=== PATIENT | female | born 1955 | race Caucasian/White ===

== ENCOUNTER 2019-08-31 20:20 | Emergency (ER) | payer OTHER, SELFPAY ==
[2019-08-31 20:21] VITALS: BP 183/111; PULSE 82; RESP 16; TEMP 36.4; BMI 31.6
--- NOTE | 2019-08-31 20:31 | ED.DCSUM_ITS ---
History of Present Illness Chief Complaint: Complaint Detail of Chief Complaint: UTI Informant: Patient Onset: Today Current Severity: Moderate Maximum Severity: Moderate Narrative: Patient presents secondary to hematuria, frequency, dysuria. She states symptoms came on around 5 PM this evening rather abruptly. Earlier in the day she had some left lateral hip pain and she is not sure if that is related to her current symptoms. Patient states she had the same presentation 2 years ago with a UTI that quickly resolved with antibiotics. She denies fever or chills. She denies abdominal pain. - Past Medical History (1) Hypertension Status: Chronic Past Medical History - Allergies and Home Meds Allergies/Adverse Reactions: Allergies No Known Allergies Allergy (Verified 08/31/19 20:20) Primary Care Physician: Fara Ferguson MD [Primary Care Provider] - Prior records reviewed: Yes Surgical History: hysterectomy Lives: Spouse/ Significant Other Review of Systems General: Denies: Chills, Fever Eyes: Denies: Visual changes - bilaterally ENT: Denies: Bilateral ear pain Cardiovascular: Denies: Chest pain Respiratory: Denies: Dyspnea, Cough, Sputum Gastrointestinal: Denies: Abdominal pain Genitourinary: Reports: Dysuria, Hematuria, Frequency Musculoskeletal: Denies: Back pain, Extremity Pain Skin: Denies: Rash Neurological: Denies: Headache Hematologic: Denies: Easy bruising, Easy bleeding Allergy: Denies: Uticaria Physical Exam Vital Signs/Narrative: Vital Signs Temp Pulse Resp BP 08/31/19 20:21 97.5 F L 82 16 183/111 H Inital Vital Signs reviewed: Yes General: Well nourished, Well developed Head: Normocephalic ENT: Moist mucous membranes Neck: Supple Cardiovascular: Regular rate, Regular rhythm Respiratory: No distress, CTA bilaterally Abdomen: Soft, Nontender Back: Negative for: CVA tenderness Extremities: Nontender Skin: Normal color, No rash Neurological: Alert, Oriented x3 Psychological: Normal affect Diagnostic/Tx/Re-eval Laboratory Results 08/31/19 20:33 Urine Color Red Urine Clarity Sl. Cloudy Urine pH 7.0 Ur Specific [place] 1.005 Urine Protein 100 H Urine Glucose (UA) Normal Urine Ketones Negative Urine Occult Blood 250 H Urine Nitrite Negative Urine Bilirubin Negative Urine Urobilinogen Normal Ur Leukocyte Esterase 500 H Urine RBC 50-100 SEEN Urine WBC 25-50 SEEN Ur Squamous Epith Cells 0-5 SEEN Urine Bacteria RARE Urine Mucus 0 SEEN - Medical Decision Making Patient's urine does show sign of infection. She did well with Macrobid in the past and will be given a course of that again. She will also be given Pyridium. Urine culture has been sent. ED Disposition - Plan for ED Patient: Disposition: Home or Assisted Living Diagnosis: Hemorrhagic cystitis Instructions: ED CYSTITIS Female Adult Prescriptions: Nitrofurantoin Macrocrystals [Macrobid] 100 mg PO Q12 #14 cap Transmission Status: Pending to [id number] Phenazopyridine HCl [Pyridium] 200 mg PO BID PRN PRN #10 tab PRN Reason: Pain Transmission Status: Pending to [id number] Referrals: Fara Ferguson MD [Primary Care Provider] - 3-5 Days if not improving
[2019-08-31 20:36] LABS: Mucous, Urine 0 SEEN /hpf (<or=2+)
[2019-08-31 20:40] LABS: Color, Urine Red (Yellow); Glucose, Dipstick Normal (Normal); Ketone-Dipstick Negative (Negative); Leukocyte Esterase-Dipstick 500 /ul (Negative); Nitrite-Dipstick Negative (Negative); Occult Blood-Urine 250 /ul (Negative); Protein-Dipstick 100 mg/dl (Negative); Specific Gravity, Urine 1.005 (1.002-1.030); Urine Bilirubin Dipstick Negative (Negative); Urine Clarity Sl. Cloudy (Clear); Urine Urobilinogen Normal (Normal)
[2019-08-31 21:10] LABS: Bacteria RARE /hpf (None Seen); Red Blood Cells-Urine 50-100 SEEN /hpf (0-5); Squamous Epithelial Cells - UA 0-5 SEEN /hpf (5-10); White Blood Cells 25-50 SEEN /hpf (0-5)
[2019-08-31] MEDS: Nitrofurantoin Macrocrystals 100 MG Capsule PO (21:22)
[2019-08-31] MEDS: Phenazopyridine 95 MG Tablet 190 MG PO (21:23)
[2019-08-31 21:26] VITALS: BP 159/97; PULSE 82; RESP 15; O2SAT 96
== END 2019-08-31 21:26 | disposition home or self-care (01) ==
PROVIDERS: Emergency Provider Emergency Medicine; PCP Internal Medicine
DX: N30.91 Cystitis, unspecified with hematuria (principal); I10 Essential (primary) hypertension; Z79.899 Other long term (current) drug therapy
CPT/HCPCS: 81001; 87086; 87088; 99283

== ENCOUNTER 2023-12-16 20:14 | Emergency (ER) | payer MEDICARE, OTHER, SELFPAY ==
[2023-12-16 20:14] VITALS: BP 147/87; PULSE 85; RESP 17; TEMP 36.4; O2SAT 98; BMI 33.4
--- NOTE | 2023-12-16 20:24 | ED.VIS.FEGU ---
HPI HPI - Female History of Present Illness Chief Complaint: Complaint PFSH PFS Home Medications ?Medication ?Instructions ?Recorded ?Last Taken ?Type Lisinopril 40 mg PO DAILY 08/31/19 Unknown History nitrofurantoin 100 mg PO Q12 #14 caps 08/31/19 Unknown Rx monohydrate/macrocrystals 100 mg capsule phenazopyridine 200 mg tablet 200 mg PO BID PRN PRN Pain #10 tabs 08/31/19 Unknown Rx nitrofurantoin macrocrystal 100 mg 100 mg PO BID 7 days #14 caps 12/16/23 Unknown Rx capsule Allergy/AdvReac Type Severity Reaction Status Date / Time No Known Allergies Allergy Verified 12/16/23 20:15 Social History Smoking Status: Never smoker EXAM Physical Exam Const Vital Signs: 12/16/23 20:14 Temperature 97.6 F L Temperature Source Temporal Pulse Rate 85 Respiratory Rate 17 Blood Pressure 147/87 H Blood Pressure Mean 107 Pulse Ox 98 Oxygen Delivery Method Room Air [facility] Narrative Medical decision making narrative: HISTORY OF PRESENT ILLNESS: 68-year-old female history of hypertension, frequent UTIs presents with burning and hematuria. Notes history of multiple UTIs. No flank pain, no fever, no vomiting. REVIEW OF SYSTEMS: Pertinent positives: Dysuria, hematuria Pertinent negatives: Fever, vomiting, abdominal pain PHYSICAL EXAM: Nursing triage notes reviewed, Vital signs reviewed Constitutional: please see [facility] [place] [facility] HENT: MMM Eyes: Pupils equal round and reactive to light, Extraocular muscles intact Neck: No stridor, no JVD, full neck ROM Lungs: Clear to auscultation, No wheezing or rales. No increased work of breathing, no conversational dyspnea, no accessory muscle use, no nasal flaring. No respiratory distress noted Heart: Regular rate and rhythm, No murmurs, No rubs and No gallops, 2+ distal pulses (radial, femoral, posterior tibial) in all extremities Abdomen: Soft, there is no tenderness, rigidity, rebound or guarding, no obvious peritoneal signs, no palpable pulsatile abdominal masses, no auscultated abdominal bruit : No CVAT Extremities: No edema Neuro: No focal neurological deficits, cranial nerves II through XII intact, 5/5 strength in all extremities. Intact sensation to light touch in all extremities, 2+ reflexes bilateral patella tendons. Normal gait. No ataxia. Skin: No rash or lesions noted MEDICAL DECISION MAKING: Chief Complaint: Dysuria, hematuria External records reviewed: Reviewed prior urine culture which was negative Factors affecting care: n hypertension MDM Narrative: Patient was hemodynamically stable, afebrile, nontoxic-appearing. Exam without CVA tenderness or lower abdominal tenderness. I considered the following differential diagnosis: UTI, pyelonephritis, hematuria, bladder cancer I obtained a urinalysis ALL IMAGES (IF OBTAINED) HAVE BEEN PERSONALLY REVIEWED AND INTERPRETED BY MYSELF. Urinalysis consistent with likely UTI Send urine culture. Prescribed nitrofurantoin. First dose given here in the emergency department. The patient and/or family, caregivers express understanding. The patient and/or family, caregivers agrees with the plan. Shared decision making: I will have a discussion with the patient and or visitors regarding risk/benefits of further testing or admission. They will be made aware of of the risk/benefits inherent in this decision they will be given the opportunity to voice understanding. Total critical care time today provided was at least 0 minutes. This excludes separately billable procedures. Critical care time (if documented) is secondary to the patient having high probability of clinically significant/life threatening deterioration in the patient's condition which required my urgent intervention. Impression: 1. Hematuria 2. Dysuria Dispo: Discharge home This note was generated with [employer] dictation software. It may contain incorrect words, spelling, and punctuation that were not noted in review of the chart prior to signing. Lab Data Labs: Laboratory Results - last 24 hr 12/16/23 20:30 Urine Color SEE COMMENT BELOW Urine Clarity Clear Urine pH 7.0 Ur Specific [place] 1.005 Urine Protein 100 H Urine Glucose (UA) Normal Urine Ketones Negative Urine Occult Blood 250 H Urine Nitrite Positive H Urine Bilirubin Negative Urine Urobilinogen Normal Ur Leukocyte Esterase 500 H Urine RBC 0-5 SEEN Urine WBC 0-5 SEEN Ur Squamous Epith Cells 0 SEEN Urine Bacteria 1+ Urine Mucus 0 SEEN Discharge Plan Triage Chief Complaint: Complaint ED Provider: Imer Jacome Dx/Rx/DC Orders Instructions: ED UTIs Women Prescriptions: New nitrofurantoin macrocrystal 100 mg capsule 100 mg PO BID 7 Days Qty: 14 0RF Rx Instructions: must administer with a meal/food No Action Lisinopril 40 mg PO DAILY nitrofurantoin monohyd/m-cryst 100 MG capsule 100 mg PO Q12 Qty: 14 0RF phenazopyridine 200 MG tablet 200 mg PO BID PRN PRN (Reason: Pain) Qty: 10 0RF Primary Care Provider: Fara Ferguson Referrals: Fara Ferguson MD [Primary Care Provider] - Activity Restrictions/Additional Instructions: Thank you for trusting us with your care today! Please take Tylenol (2 pills, 650 mg), ibuprofen (2 pills, 400 mg) every 6 hours as needed for pain and fever control. Please take nitrofurantoin until course complete. Please return to the emergency department if your symptoms change or worsen. Specifically develop vomiting, cannot turn antibiotics, severe abdominal pain, pain in your flank area, if you lose consciousness. Please follow with your primary care physician for further outpatient evaluation and management. Print Language: [place]ian Disposition Disposition: Home, Self Care
[2023-12-16 20:42] LABS: Mucous, Urine 0 SEEN /hpf (<or=2+); Squamous Epithelial Cells - UA 0 SEEN /hpf (5-10)
[2023-12-16 20:55] LABS: Glucose, Dipstick Normal (Normal); Ketone-Dipstick Negative (Negative); Leukocyte Esterase-Dipstick 500 /ul (Negative); Nitrite-Dipstick Positive (Negative); Occult Blood-Urine 250 /ul (Negative); Protein-Dipstick 100 mg/dl (Negative); Specific Gravity, Urine 1.005 (1.002-1.030); Urine Bilirubin Dipstick Negative (Negative); Urine Clarity Clear (Clear); Urine Urobilinogen Normal (Normal)
[2023-12-16 20:58] LABS: Color, Urine SEE COMMENT BELOW (Yellow)
[2023-12-16 21:09] LABS: Bacteria 1+ /hpf (None Seen); Red Blood Cells-Urine 0-5 SEEN /hpf (0-5); White Blood Cells 0-5 SEEN /hpf (0-5)
[2023-12-16 21:16] VITALS: BP 162/101; PULSE 77; RESP 18; TEMP 36.1; O2SAT 96
[2023-12-16] MEDS: Nitrofurantoin Macrocrystals 100 MG Capsule PO (21:21)
== END 2023-12-16 21:22 | disposition home or self-care (01) ==
PROVIDERS: Emergency Provider Emergency Medicine; PCP Internal Medicine; Visit Provider Emergency Medicine
DX: R31.9 Hematuria, unspecified (principal); R30.0 Dysuria; I10 Essential (primary) hypertension; Z87.440 Personal history of urinary (tract) infections
CPT/HCPCS: 81001; 87077; 87086; 87088; 87186; 99282